=== PATIENT | female | born 1945 | race Caucasian/White ===

== ENCOUNTER 2018-01-11 12:30 | Outpatient (RCR) | payer MEDICARE, MEDICAID ==
[2018-01-04] MEDS: FERRIC CARBOXYMALTOSE INJ 750 MG in NS (IVPB) 250 ML IV SCH (13:44)
[2018-01-04 15:20] VITALS: BP 120/61
[~2018-01-11 12:30] MED LIST: ACET-93 PO; ACETAMINOPHEN 500 MG TAB (TYLENOL) PO PRN; C250T PO; CRV25T PO; FEBU40TA PO; FERR325T18 PO; FERRIC CARBOXYMALTOSE 750 MG/15 ML IV SCH; FURO-125 PO; LORA10TA7 PO; METO2.5T PO; PANT40TA2 PO; POTA10TA10 PO; SERT50TA2 PO; WARF2TAB PO; WARF3TAB PO; diphenhydrAMINE 50 MG/ML INJ (BENADRYL) IV PRN
[2018-01-11] MEDS: FERRIC CARBOXYMALTOSE INJ 750 MG in NS (IVPB) 250 ML IV SCH (12:50)
[2018-01-11 13:30] VITALS: BP 117/64
== END 2018-04-04 | disposition home or self-care (01) ==
LOC: SDC 12:30
PROVIDERS: ATTEND Internal Medicine Nephrology
DX: D50.9 Iron deficiency anemia, unspecified (principal); D63.1 Anemia in chronic kidney disease; N18.3 Chronic kidney disease, stage 3 (moderate)
CPT/HCPCS: 96365

== ENCOUNTER → 2018-10-19 | Outpatient (CLI) | payer MEDICARE, MEDICAID ==
[~2018-10-19] MED LIST changes: -ACETAMINOPHEN 500 MG TAB (TYLENOL) PO PRN; -FERRIC CARBOXYMALTOSE 750 MG/15 ML IV SCH; -diphenhydrAMINE 50 MG/ML INJ (BENADRYL) IV PRN
--- NOTE | 2018-10-19 12:55 | Diagnostic Imaging Report ---
PROCEDURE: US Thyroid. TECHNIQUE: Multiple real-time grayscale images were obtained of the thyroid in various projections. INDICATION: Primary hyperparathyroidism. FINDINGS: The right lobe of the thyroid measures 4.3 x 1.8 x 2.1 cm and the left lobe measures 3.5 x 1.6 x 1.7 cm. Isthmus is 3 mm in thickness. Bilateral thyroid nodules are identified. Nodules on the left are 2 to 4 mm in size. Largest nodule on the right measures approximately 1.4 x 1.9 x 1.1 cm. No microcalcifications are identified. IMPRESSION: Bilateral thyroid nodules, largest on the right. Fine-needle aspiration could be attempted, although this nodule is somewhat ill defined and difficult to separate from adjacent normal thyroid parenchyma. Consideration could be given to performance of followup with repeat study in approximately 6 months' to confirm stability. Dictated by: Dictated on workstation # [id number]
--- NOTE | 2018-10-19 19:06 | Diagnostic Imaging Report ---
INDICATION: Hyperparathyroidism. COMPARISON: Ultrasound thyroid, October 19, 2018. EXAMINATION: 20 minute and 2 hour delayed scintigraphic images at the level of the neck and chest were obtained. SPECT CT imaging was also obtained and provided. FINDINGS: There is a nodular area of radiotracer uptake overlying the right lobe of the thyroid which persists on delayed imaging. There is salivary gland and myocardial uptake which is a normal radiotracer distribution. The area of radiotracer uptake is projecting posterior to the expected location of the right lobe of the thyroid. Parathyroid adenoma versus an exophytic thyroid adenoma or primary differential diagnostic considerations. IMPRESSION: Nodular area of abnormal radiotracer uptake adjacent to the posterior aspect of the right lobe of the thyroid which may relate to a parathyroid adenoma. An exophytic thyroid adenoma would be a differential diagnostic consideration. Dictated by: Dictated on workstation # [id number]
== END ==
LOC: CARD 11:46
PROVIDERS: ATTEND Internal Medicine Endocrinology, Diabetes & Metabolism
DX: E21.0 Primary hyperparathyroidism (principal); E04.1 Nontoxic single thyroid nodule
CPT/HCPCS: 76536; 78072

== ENCOUNTER 2018-11-27 13:04 | Outpatient (RCR) | payer MEDICARE, MEDICAID ==
[2018-09-04 12:47] LABS: HEMOGLOBIN 9.9 G/DL (11.5-16.0)
[2018-09-04] MEDS: DARBEPOETIN 40 MCG/ML (ARANESP) HOSPITAL SC SCH (13:09)
[2018-09-04 13:30] VITALS: BP 136/66
[2018-09-18] MEDS: DARBEPOETIN 40 MCG/ML (ARANESP) HOSPITAL SC SCH (13:26)
[2018-09-18 13:30] VITALS: BP 142/70
[2018-09-18 13:53] LABS: ALBUMIN 3.9 GM/DL (3.2-4.5); CALCIUM 9.4 MG/DL (8.5-10.1); CREATININE SERUM 1.75 MG/DL (0.60-1.30); PHOSPHORUS 2.9 MG/DL (2.3-4.7); POTASSIUM 3.9 MMOL/L (3.6-5.0)
[2018-10-02 12:55] VITALS: BP 147/88
[2018-10-02 13:51] LABS: HEMOGLOBIN 10.4 G/DL (11.5-16.0)
[2018-10-30 13:34] LABS: HEMOGLOBIN 10.2 G/DL (11.5-16.0)
[2018-10-30] MEDS: DARBEPOETIN 60 MCG/ML (ARANESP) HOSPITAL SQ SCH (13:50)
[2018-10-30 13:55] VITALS: BP 127/60
[2018-11-13] MEDS: DARBEPOETIN 60 MCG/ML (ARANESP) HOSPITAL SQ SCH (12:53)
[2018-11-13 12:55] VITALS: BP 148/86
[~2018-11-27] VITALS: Ht 160 cm; Wt 124.7 kg
[~2018-11-27 13:04] MED LIST changes: +DARBEPOETIN 60 MCG/ML (ARANESP) HOSPITAL SQ SCH
[2018-11-27 13:28] LABS: HEMOGLOBIN 11.3 G/DL (11.5-16.0)
[2018-11-27 13:45] LABS: ALBUMIN 4.2 GM/DL (3.2-4.5); CALCIUM 9.5 MG/DL (8.5-10.1); CREATININE SERUM 1.55 MG/DL (0.60-1.30); PHOSPHORUS 3.7 MG/DL (2.3-4.7); POTASSIUM 3.9 MMOL/L (3.6-5.0)
[2018-11-27 13:50] VITALS: BP 134/78
[2018-11-27] MEDS: DARBEPOETIN 60 MCG/ML (ARANESP) HOSPITAL SQ SCH (13:50)
== END 2018-12-03 | disposition home or self-care (01) ==
LOC: SDC 13:04
PROVIDERS: ATTEND Internal Medicine Nephrology
DX: N18.4 Chronic kidney disease, stage 4 (severe) (principal); D63.1 Anemia in chronic kidney disease
CPT/HCPCS: 36415; 80069; 82728; 83540; 85014; 85018; 96372

== ENCOUNTER → 2019-10-01 | Outpatient (CLI) | payer MEDICARE, MEDICAID ==
[~2019-10-01] MED LIST changes: -DARBEPOETIN 60 MCG/ML (ARANESP) HOSPITAL SQ SCH
--- NOTE | 2019-10-01 13:06 | Diagnostic Imaging Report ---
INDICATION: Thyroid nodule. TECHNIQUE: Grayscale sonographic images of the thyroid gland. CORRELATION STUDY: 10/19/2018. FINDINGS: RIGHT LOBE: 4.5 x 1.7 x 1.9 cm. There is normal echotexture about the right lobe. LEFT LOBE: 3.8 x 1.4 x 1.4 cm. There are two predominantly cystic nodules with minimal peripheral soft tissue nodularity present. Perhaps underlying colloid cyst. Fairly similar in size, 6 x 6 x 3 mm and addition one 7 x 5 x 4 mm. The previously noted somewhat ill-defined area of nodularity and vascularity inferior to the right lobe is not appreciated on this current study. IMPRESSION: Two small, predominantly cystic, nodules in the left lobe. Perhaps minimally increased in size. Additional follow-up ultrasound imaging in approximately 12 months is recommended for reassessment of likely benign process. (Normal gland size: 4-5 x 2 x 2 cm) Dictated by: Dictated on workstation # [id number]
== END ==
LOC: RAD 10:49
PROVIDERS: ATTEND Internal Medicine Endocrinology, Diabetes & Metabolism
DX: E04.2 Nontoxic multinodular goiter (principal)
CPT/HCPCS: 76536

== ENCOUNTER 2021-05-12 10:48 | Emergency (ER) | payer MEDICARE, MEDICAID ==
[~2021-05-12] VITALS: Ht 160 cm; Wt 98.6 kg
[~2021-05-12 10:48] MED LIST changes: +ASCO250T16 PO; -C250T PO
--- NOTE | 2021-05-12 11:39 | ED Abdominal Pain ---
General Chief Complaint: Abdominal/GI Problems Stated Complaint: UMBILICAL HERNIA PAIN Nursing Triage Note: AMB TO ED WITH WALKER REPORTS SINCE SUN HAS HAD HERNIA. THAT HAS BEEN HURTING SINCE TUESDAY. C/O NAUSEA. Source of Information: Patient Exam Limitations: No Limitations (DEBBI ARMOS MED STUDENT) History of Present Illness Date Seen by Provider: May 12, 2021 Time Seen by Provider: 11:20 Initial Comments This is Felecia a 75 yo female that presented to the ED with her daughter via private vehicle with the chief complaint of abdominal pain. Pt states that she was diagnosed with an umbilical hernia 5-6 years ago but has only experienced these symptoms since last Tuesday. She described the lower abdominal pain as waxing and waning that becomes very sharp periodically. The pain continues to get worse and she put it at a 6/10 on the pain scale today. She is experiencing dry heaves and diarrhea. Pt has tried Tylenol but states that she has only been able to take 1 or 2 with her history of atrial fibrillation. Other PMH is significant for stage 3 kidney failure and controlled hypertension. Pt states that she is on a blood thinner but has been unable to take medications since yesterday due to dry heaving. PSH is significant for knee, back, and cataract surgery. Pt states that she hallucinates on morphine. Timing/Duration: 2-3 Days, 3-4 Days Severity/Quality: Moderate, Aching, Sharp Radiation: RLQ, LLQ Activities at Onset: None Modifying Factors: Worsens With Eating, Worsens With Movement Associated Symptoms: Nausea/Vomiting, Other (diarrhea) (DEBBI RAMOS STUDENT) Allergies and Home Medications Allergies Coded Allergies: No Known Drug Allergies (Unverified , 01/04/18) Patient Home Medication List Home Medication List Reviewed: Yes (AMARILIS LYMAN MD) Acetaminophen (Acetaminophen) 500 Mg Tablet, 2 TAB PO Q4H, (Reported) Entered as Reported by: RUFUS WINTERS on 01/04/181905 Ascorbic Acid (Vitamin C) 250 Mg Tab, 250 MG PO BID, (Reported) Entered as Reported by: RUFUS WINTERS on 01/04/181905 Carvedilol (Coreg) 25 Mg Tab, 50 MG PO BID, (Reported) Entered as Reported by: RUFUS WINTERS on 01/04/181905 Cephalexin (Cephalexin) 500 Mg Tablet, 500 MG PO BID Prescribed by: AMARILIS POLANCO on 05/12/211553 Febuxostat (Uloric) 40 Mg Tablet, 40 MG PO DAILY, (Reported) Entered as Reported by: RUFUS WINTERS on 01/04/181905 Ferrous Sulfate (Ferrous Sulfate) 325 Mg Tablet, 325 MG PO BID, (Reported) Entered as Reported by: RUFUS WINTERS on 01/04/181905 Furosemide (Lasix) 20 Mg Tablet, 20 MG PO DAILY, (Reported) Entered as Reported by: RUFUS WINTERS on 01/04/181905 Hydrocodone/Acetaminophen (Hydrocodone-Acetamin 5-325 mg) 1 Each Tablet, 0.5-1 TAB PO Q4H PRN for PAIN-MODERATE (5-7) Prescribed by: AMARILIS POLANCO on 05/12/211554 Loratadine (Loratadine) 10 Mg Tablet, 10 MG PO DAILY, (Reported) Entered as Reported by: RUFUS WINTERS on 01/04/181905 Metolazone (Metolazone) 2.5 Mg Tablet, 2.5 MG PO DAILY, (Reported) Entered as Reported by: RUFUS WINTERS on 01/04/181905 Ondansetron (Ondansetron Odt) 4 Mg Tab.rapdis, 4 MG SL Q4H PRN for NAUSEA/VOMITING Prescribed by: AMARILIS POLANCO on 05/12/211553 Pantoprazole Sodium (Protonix) 40 Mg Tablet.dr, 40 MG PO DAILY, (Reported) Entered as Reported by: RUFUS WINTERS on 01/04/181905 Potassium Chloride (Potassium Chloride) 10 Meq Tablet.er, 10 MEQ PO DAILY, (Reported) Entered as Reported by: RUFUS WINTERS on 01/04/181905 Sertraline HCl (Zoloft) 50 Mg Tablet, 50 MG PO DAILY, (Reported) Entered as Reported by: RUFUS WINTERS on 01/04/181905 Warfarin Sodium (Coumadin) 2 Mg Tablet, 2 MG PO WEEK, (Reported) Entered as Reported by: RUFUS WINTERS on 01/04/181905 Warfarin Sodium (Coumadin) 3 Mg Tablet, 3 MG PO UD, (Reported) Entered as Reported by: RUFUS WINTERS on 01/04/181905 Review of Systems Review of Systems Constitutional: no symptoms reported EENTM: No Symptoms Reported Respiratory: No Symptoms Reported Cardiovascular: Irregular Heart Rate Gastrointestinal: Abdominal Pain, Diarrhea, Poor Appetite, Poor Fluid Intake, Vomiting Genitourinary: No Symptoms Reported Musculoskeletal: no symptoms reported Skin: no symptoms reported Psychiatric/Neurological: No Symptoms Reported Endocrine: No Symptoms Reported Hematologic/Lymphatic: No Symptoms Reported (DEBBI RAMOS) Past Xvzyqbk-Zslgby-Rtkqgd Hx Patient Social History Tobacco Use?: No Substance use?: No Pt feels they are or have been: No (DEBBI RAMOS) Immunizations Up To Date First/Initial COVID19 Vaccinat: 04/06 Second COVID19 Vaccination Carter: 04/22 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 0.0oz. 124.754273yn; 38.00 BMI Method: General Appearance: WD/WN, moderate distress, obese HEENT: PERRL/EOMI Neck: non-tender, supple, normal inspection Respiratory: chest non-tender, lungs clear, normal breath sounds, no respiratory distress, no accessory muscle use Cardiovascular: normal peripheral pulses, irregularly irregular Gastrointestinal: abnormal bowel sounds, distended, rebound, tenderness, hernia Rectal: deferred Extremities: normal range of motion, non-tender, normal inspection Neurologic/Psychiatric: no motor/sensory deficits, alert, normal mood/affect, oriented x 3 Skin: normal color, warm/dry (DEBBI RAMOS STUDENT) Focused Exam Respiratory: Chest Non Tender, Lungs Clear, Normal Breath Sounds, No Accessory Muscle Use, No Respiratory Distress Cardiovascular: Irregularly Irregular Skin: normal color, warm/dry (DEBBI RAMOS) Progress/Results/Core Measures Results/Orders Lab Results Laboratory Tests Test 05/12/21 10:50 10/19/21 12:06 05/12/21 14:56 Range/Units Lab Scanned Report Referred Lab Report [id number] White Blood Count 8.1 4.3-11.0 10^3/uL Red Blood Count 4.64 3.80-5.11 10^6/uL Hemoglobin 14.8 11.5-16.0 g/dL Hematocrit 45 35-52 % Mean Corpuscular Volume 96 80-99 fL Mean Corpuscular Hemoglobin 32 25-34 pg Mean Corpuscular Hemoglobin Concent 33 32-36 g/dL Red Cell Distribution Width 12.2 10.0-14.5 % Platelet Count 114 L 130-400 10^3/uL Mean Platelet Volume 11.4 9.0-12.2 fL Immature Granulocyte % (Auto) 0 % Neutrophils (%) (Auto) 86 H 42-75 % Lymphocytes (%) (Auto) 8 L 12-44 % Monocytes (%) (Auto) 6 0-12 % Eosinophils (%) (Auto) 0 0-10 % Basophils (%) (Auto) 0 0-10 % Neutrophils # (Auto) 7.0 1.8-7.8 10^3/uL Lymphocytes # (Auto) 0.6 L 1.0-4.0 10^3/uL Monocytes # (Auto) 0.5 0.0-1.0 10^3/uL Eosinophils # (Auto) 0.0 0.0-0.3 10^3/uL Basophils # (Auto) 0.0 0.0-0.1 10^3/uL Immature Granulocyte # (Auto) 0.0 0.0-0.1 10^3/uL Neutrophils % (Manual) 82 % Lymphocytes % (Manual) 14 % Monocytes % (Manual) 2 % Eosinophils % (Manual) 1 % Basophils % (Manual) 0 % Band Neutrophils 1 % Blood Morphology Comment NORMAL Prothrombin Time 15.7 H 12.2-14.7 SEC INR Comment 1.2 0.8-1.4 Sodium Level 141 135-145 MMOL/L Potassium Level 3.3 L 3.6-5.0 MMOL/L Chloride Level 102 98-107 MMOL/L Carbon Dioxide Level 26 21-32 MMOL/L Anion Gap 13 5-14 MMOL/L Blood Urea Nitrogen 23 H 7-18 MG/DL Creatinine 1.70 H 0.60-1.30 MG/DL Estimat Glomerular Filtration Rate 29 BUN/Creatinine Ratio 14 Glucose Level 127 H 70-105 MG/DL Calcium Level 10.2 H 8.5-10.1 MG/DL Corrected Calcium 10.0 8.5-10.1 MG/DL Total Bilirubin 1.4 H 0.1-1.0 MG/DL Aspartate Amino Transf (AST/SGOT) 35 H 5-34 U/L Alanine Aminotransferase (ALT/SGPT) 36 0-55 U/L Alkaline Phosphatase 173 H 40-136 U/L C-Reactive Protein High Sensitivity 0.20 0.00-0.50 MG/DL Total Protein 7.5 6.4-8.2 GM/DL Albumin 4.2 3.2-4.5 GM/DL Lipase 31 8-78 U/L Urine Color YELLOW Urine Clarity SL CLOUDY Urine pH 6.0 5-9 Urine Specific [place] 1.015 L 1.016-1.022 Urine Protein NEGATIVE NEGATIVE Urine Glucose (UA) NEGATIVE NEGATIVE Urine Ketones NEGATIVE NEGATIVE Urine Nitrite NEGATIVE NEGATIVE Urine Bilirubin NEGATIVE NEGATIVE Urine Urobilinogen 0.2 < = 1.0 MG/DL Urine Leukocyte Esterase 1+ H NEGATIVE Urine RBC (Auto) TRACE-I H NEGATIVE Urine RBC 0-2 /HPF Urine WBC 5-10 H /HPF Urine Crystals PRESENT H /LPF Urine Amorphous Sediment FEW HERMELINDO URATES H /LPF Urine Bacteria MODERATE H /HPF Urine Casts NONE /LPF Urine Mucus NEGATIVE /LPF Urine Culture Indicated YES (AMARILIS LYMAN MD) Micro Results Microbiology 05/12/21 Urine Culture - Final, Complete NO GROWTH (AMARILIS LYMAN MD) My Orders Orders - AMARILIS LYMAN MD Cbc With Automated Diff (05/12/21 11:34) Comprehensive Metabolic Panel (05/12/21 11:34) Hs C Reactive Protein (05/12/21 11:34) Lipase (05/12/21 11:34) Ua Culture If Indicated (05/12/21 11:34) Ed Iv/Invasive Line Start (05/12/21 11:34) Manual Differential (05/12/21 12:06) Protime With Inr (05/12/21 12:33) Ed Iv/Invasive Line Start (05/12/21 13:00) Lactated Ringers (Lr 1000 Ml Iv Solution (05/12/21 13:00) Ct Abdomen/Pelvis Wo (05/12/21 13:12) Urine Culture (05/12/21 14:56) (AMARILIS LYMAN MD) Medications Given in ED (AMARILIS LYMAN MD) Vital Signs/I&O 05/12/21 05/12/21 05/12/21 11:05 11:34 16:09 Temp 36.3 Pulse 88 85 78 Resp 18 18 18 B/P (MAP) 190/101 (130) 159/84 133/70 Pulse Ox 96 97 96 O2 Delivery Room Air Room Air Room Air (AMARILIS LYMAN MD) Blood Pressure Mean: 130 Progress Progress Note : Progress Note There are mild dyscrasias on the lab work-up. The kidney dysfunction is chronic and at baseline. I discussed further work-up with imaging due to increasing pain with presence of hernia. Patient elected to proceed with CT. CT demonstrated a fat-containing abdominal wall hernia but no significant bowel involvement. Urinary tract infection was identified. Hernia may in fact be the cause of her pain. Urinary tract infection is being treated and patient was advised to seek referral to a general surgeon to discuss her hernia. See discharge instructions. (AMARILIS LYMAN MD) Departure Impression Primary Impression: Abdominal wall hernia Additional Impressions: Lower abdominal pain Urinary tract infection Qualified Codes: N39.0 - Urinary tract infection, site not specified Disposition: 01 HOME, SELF-CARE Condition: Stable Departure-Patient Inst. Decision time for Depature: 15:47 (AMARILIS LYMAN MD) Referrals: [facility] (PCP) Primary Care Physician MELISA GREY DO (Family) Primary Care Physician PAUL ROSENTHAL BRETT D DO KIDO, TAKAAKI MD Patient Instructions: Abdominal Wall Hernias, Urinary Tract Infections in Adults Add. Discharge Instructions: Drink plenty of clear liquids to stay well hydrated. Complete your antibiotic as prescribed. Urine culture results should be available in about 48 hours. Please follow-up with your primary care provider by phone to review culture results. Seek referral to a surgeon for an opinion regarding your abdominal wall hernia. Use your pain medication as prescribed. Call with questions or concerns. Return to the ER if you have worsening symptoms. Please note hydrocodone may cause constipation. If you are no longer having diarrhea, you may wish to take a stool softener such as Colace daily while you are using hydrocodone. All discharge instructions reviewed with patient and/or family. Voiced understanding. Scripts Hydrocodone/Acetaminophen (Hydrocodone-Acetamin 5-325 mg) 1 Each Tablet 0.5-1 TAB PO Q4H PRN for PAIN-MODERATE (5-7), #10 TAB Prov: AMARILIS LYMAN MD 05/12/21 Ondansetron (Ondansetron Odt) 4 Mg Tab.rapdis 4 MG SL Q4H PRN for NAUSEA/VOMITING, #10 TAB Prov: AMARILIS LYMAN MD 05/12/21 Cephalexin (Cephalexin) 500 Mg Tablet 500 MG PO BID, #14 TAB Prov: AMARILIS LYMAN MD 05/12/21 Copy Copies To 1: MELISA GREY DYLAN MED STUDENT May 12, 2021 11:39 AMARILIS LYMAN MD May 12, 2021 15:52
[2021-05-12 12:15] LABS: BASOPHILS % (AUTO) 0 % (0-10); EOSINOPHILS % (AUTO) 0 % (0-10); HEMATOCRIT 45 % (35-52); HEMOGLOBIN 14.8 g/dL (11.5-16.0); LYMPHOCYTES # (AUTO) 0.6 10^3/uL (1.0-4.0); LYMPHOCYTES % (AUTO) 8 % (12-44); MEAN CORPUSCULAR HEMOGLOBIN 32 pg (25-34); MEAN CORPUSCULAR HGB CONC 33 g/dL (32-36); MEAN CORPUSCULAR VOLUME 96 fL (80-99); MEAN PLATELET VOLUME 11.4 fL (9.0-12.2); MONOCYTES # (AUTO) 0.5 10^3/uL (0.0-1.0); MONOCYTES % (AUTO) 6 % (0-12); NEUTROPHILS % (AUTO) 86 % (42-75); PLATELET COUNT 114 10^3/uL (130-400); WHITE BLOOD COUNT 8.1 10^3/uL (4.3-11.0)
[2021-05-12 12:34] LABS: ALBUMIN 4.2 GM/DL (3.2-4.5); POTASSIUM 3.3 MMOL/L (3.6-5.0)
[2021-05-12 12:35] LABS: CALCIUM 10.2 MG/DL (8.5-10.1)
[2021-05-12 12:37] LABS: TOTAL PROTEIN 7.5 GM/DL (6.4-8.2)
[2021-05-12 12:38] LABS: BILIRUBIN,TOTAL 1.4 MG/DL (0.1-1.0)
[2021-05-12 12:40] LABS: CREATININE SERUM 1.7 MG/DL (0.60-1.30)
[2021-05-12 12:41] LABS: BAND NEUTROPHILS 1 %; BASOPHILS % (MANUAL) 0 %; EOSINOPHILS % (MANUAL) 1 %; LYMPHOCYTES % (MANUAL) 14 %; MONOCYTES % (MANUAL) 2 %; NEUTROPHILS % (MANUAL) 82 %; RBC MORPH NORMAL
[2021-05-12 12:51] LABS: INR 1.2 (0.8-1.4); PROTHROMBIN TIME PATIENT 15.7 SEC (12.2-14.7)
[2021-05-12] MEDS ORDERED: LACTATED RINGERS 1,000 ML IV ONE (13:00)
--- NOTE | 2021-05-12 14:19 | Diagnostic Imaging Report ---
PROCEDURE: CT abdomen and pelvis without contrast. TECHNIQUE: Multiple contiguous axial images were obtained through the abdomen and pelvis without the use of intravenous contrast. Auto Exposure Controls were utilized during the CT exam to meet ALARA standards for radiation dose reduction. INDICATION: Abdominal umbilical hernia, abdominal pain. COMPARISON: None. FINDINGS: There is mild cardiac enlargement. Lungs are clear. Coronary artery disease is present. The visualized gallbladder, liver, spleen, and pancreas are grossly unremarkable. There is a benign exophytic cyst measuring 5.5 cm of the right kidney. Renal atrophy is seen bilaterally. There is no hydronephrosis. Mild atherosclerosis is seen throughout the abdominal aorta without evidence of aneurysm. There is some nonspecific distention with air-fluid levels in the proximal colon. No obvious obstruction or mass is seen. The descending and sigmoid colon are decompressed. Consider colonoscopy for further evaluation. The visualized small bowel is unremarkable. There is a large fat-containing umbilical hernia which does not appear inflamed. The hernia does not contain bowel however, given the distention of the proximal colon, this is likely the transition point due to some partial stricturing. The uterus is chronically calcified and atrophied. There is enlargement of the left ovary for the patient's age measuring up to 3.8 cm. The urinary bladder is unremarkable. Osseous structures demonstrate severe degenerative changes with scoliosis of the thoracolumbar spine. IMPRESSION: 1. Fat-containing umbilical hernia, likely omentum which may be causing some slight narrowing of portion of the transverse colon with some proximal distention. The descending and sigmoid colon are decompressed. There is no overt inflammation. 2. Right renal cyst with chronic renal atrophy. 3. Enlarged left ovary. This may be further classified with a nonemergent ultrasound. Dictated by: Dictated on workstation # [id number]
[2021-05-12 15:08] LABS: BILIRUBIN,URINE NEGATIVE (NEGATIVE); CLARITY,URINE SL CLOUDY; COLOR,URINE YELLOW; GLUCOSE, URINE (UA) NEGATIVE (NEGATIVE); KETONES,URINE NEGATIVE (NEGATIVE); LEUKOCYTE ESTERASE ,URINE 1+ (NEGATIVE); NITRITE,URINE NEGATIVE (NEGATIVE); PROTEIN,URINE NEGATIVE (NEGATIVE)
[2021-05-12 15:23] LABS: BACTERIA,URINE MODERATE /HPF
[2021-05-12 15:24] LABS: AMORPHOUS SEDIMENT,UR FEW AMOR URATES /LPF; RBC,URINE 0-2 /HPF
[2021-05-12] MEDS ORDERED: CEPH500T PO (15:54)
[2021-05-12] MEDS ORDERED: ONDA4TAB11 SL (15:54)
[2021-05-12] MEDS ORDERED: ACHD5005 PO (15:54)
[2021-05-12 16:09] VITALS: BP 133/70
== END 2021-05-12 16:09 | disposition home or self-care (01) ==
LOC: EDUNIT# 10:48 → ER 10:50
DX: K43.9 Ventral hernia without obstruction or gangrene (principal); N39.0 Urinary tract infection, site not specified; E66.9 Obesity, unspecified; I48.91 Unspecified atrial fibrillation; Z68.38 Body mass index [BMI] 38.0-38.9, adult; Z79.01 Long term (current) use of anticoagulants
CPT/HCPCS: 36415; 74176; 80053; 81000; 83690; 85007; 85027; 85610; 86141; 87088

== ENCOUNTER 2021-05-28 05:34 | Outpatient (CLI) | payer MEDICARE, MEDICAID ==
[~2021-05-28] VITALS: Ht 162.6 cm; Wt 101.4 kg
[~2021-05-28 05:34] MED LIST changes: +ACHD5005 PO; +CEPH500T PO; +ONDA4TAB11 SL
[2021-05-28] MEDS ORDERED: APIX2.5T PO (12:17)
[2021-05-28] MEDS ORDERED: CHOL400C9 PO (12:17)
[2021-05-28] MEDS ORDERED: COLC0.6C3 PO (12:17)
== END 2021-05-28 12:52 | disposition home or self-care (01) ==
LOC: PREOP 05:34
PROVIDERS: ATTEND Surgery
DX: Z01.818 Encounter for other preprocedural examination (principal)

== ENCOUNTER 2021-06-04 08:19 | Day surgery (SDC) | payer MEDICARE, MEDICAID ==
[~2021-06-04] VITALS: Ht 162.6 cm; Wt 101.4 kg
[2021-06-04] VITALS (11 sets, daily range): BP systolic 99–137; BP diastolic 55–88
[~2021-06-04 08:19] MED LIST changes: +APIX2.5T PO; +CHOL400C9 PO; +COLC0.6C3 PO
[2021-06-04] MEDS ORDERED: ceFAZolin 2 GM IV Premixed 50 ML IV ONE (08:30)
[2021-06-04] MEDS ORDERED: LACTATED RINGERS 1,000 ML IV PRN (08:30)
[2021-06-04] MEDS ORDERED: LIDOCAINE/EPI 1%-1:100,000 (XYLOCAINE) 20ML ONE (08:38)
[2021-06-04] MEDS ORDERED: fentaNYL INJ 100 MCG/2 ML AMP ONE (08:47)
[2021-06-04] MEDS ORDERED: LIDOCAINE PF 2% 5 ML (XYLOCAINE) VIAL ONE (08:47)
[2021-06-04] MEDS ORDERED: ROCURONIUM 10 MG/ML 5 ML SYRINGE IV ONE (08:47)
[2021-06-04] MEDS ORDERED: SEVOFLURANE (ULTANE) 15 ML INHAL SOLN ONE ×2 (08:47→11:18)
[2021-06-04] MEDS ORDERED: ONDANSETRON 4 MG/2 ML (SDV) Z0FRAN ONE (08:47)
[2021-06-04] MEDS ORDERED: proPOfol 200 MG/20 ML (DIPRIVAN) VIAL IV ONE (08:47)
--- NOTE | 2021-06-04 08:57 | Progress Note-Pre Operative ---
Pre-Operative Progress Note H&P Reviewed The H&P was reviewed, patient examined and no changes noted. Date Seen by Provider: Jun 04, 2021 Time Seen by Provider: 08:50 Date H&P Reviewed: Jun 04, 2021 Time H&P Reviewed: 08:45 Pre-Operative Diagnosis: Symptomatic umbilical hernia VANIA JAQUEZ APRN Jun 04, 2021 08:57
[2021-06-04] MEDS ORDERED: HYDR-3817 PO (08:59)
[2021-06-04] MEDS ORDERED: ONDANSETRON 4 MG/2 ML (SDV) Z0FRAN IVP PRN ×2 (09:00→11:45)
[2021-06-04] MEDS ORDERED: HYDROcodone/APAP 5 MG/325 MG (LORTAB) TAB PO ONE (09:00)
[2021-06-04] MEDS ORDERED: ACETAMINOPHEN 325 MG TABLET PO PRN (09:00)
[2021-06-04] MEDS ORDERED: fentaNYL INJ 100 MCG/2 ML AMP IVP PRN (09:00)
--- NOTE | 2021-06-04 09:00 | Discharge Inst-Surgical ---
D/C Lap Instructions-KIDO Reconcile Patient Problems Problems Reviewed?: Yes New, Converted, or Re-Newed RX: RX on Chart Follow Up Appt in 2 weeks Activity as tolerated No driving for 24 hours No driving while on pain medications Incentive Spirometry use every 2 hours while awake Regular Diet Symptoms to Report: Fever over 101 degree F, Nausea/Vomiting Infection Signs and Symptoms to report: Increased redness, Foul odor of wound, Increased drainage Bathing instructions: May shower Operative Area Clean/Dry; Keep incision clean/dry If any problems/questions: Contact your physician or go to Emergency Room VANIA JAQUEZ APRN Jun 04, 2021 09:00
[2021-06-04] MEDS ORDERED: GLYCOPYRROLATE 0.2 MG/ML (ROBINUL) 2 ML VIAL ONE ×2 (10:59→11:27)
[2021-06-04] MEDS ORDERED: ATROPINE INJ 0.4 MG/ML SDV ONE (11:00)
--- NOTE | 2021-06-04 11:22 | Progress Note-Post Operative ---
Post-Operative Progess Note Surgeon (s)/Escapement Maker (s) Surgeon LEO BENTON MD Escapement Maker: holly leavitt POSTMASTER RELIEF Pre-Operative Diagnosis Symptomatic umbilical hernia Post-Operative Diagnosis incacerated umbilical hernia Procedure & Operative Findings Date of Procedure 06/04/21 Procedure Performed/Findings open incarcerated umbilical hernia repair with mesh. Anesthesia Type get Estimated Blood Loss Estimated blood loss (mL): minimal Specimens/Packing Specimens Removed hernia sac LEO BENTON MD Jun 04, 2021 11:22
[2021-06-04] MEDS ORDERED: MEPERIDINE (DEMEROL) INJ 50 MG/ML IVP ONE (11:45)
[2021-06-04] MEDS ORDERED: fentaNYL INJ 100 MCG/2 ML AMP IVP ONE (11:45)
[2021-06-04] MEDS ORDERED: PROMETHAZINE INJ 25 MG/ML (PHENERGAN) AMP IVP ONE (11:45)
--- NOTE | 2021-06-04 11:47 | Anesthesia-General Post-Op ---
General Patient Condition Mental Status/LOC: Same as Preop Cardiovascular: Satisfactory Nausea/Vomiting: Absent Respiratory: Satisfactory Pain: Controlled Complications: Absent Post Op Complications Complications None Follow Up Care/Instructions Patient Instructions None needed. Anesthesia/Patient Condition Patient Condition Patient is doing well, no complaints, stable vital signs, no apparent adverse anesthesia problems. No complications reported per nursing. DIAZ MCKEON CRNA Jun 04, 2021 11:47
--- NOTE | 2021-06-04 16:21 | OPERATIVE REPORT ---
DATE OF SERVICE: 06/04/2021 ATTENDING PRIMARY CARE PHYSICIAN: Dr. Henry Hayward. PREOPERATIVE DIAGNOSIS: Symptomatic incarcerated umbilical hernia. POSTOPERATIVE DIAGNOSIS: Symptomatic incarcerated umbilical hernia with the defect approximately 6 cm in size. PROCEDURE: Open incarcerated umbilical hernia repair with mesh. SURGEON: Leo Benton MD. DATABASE TESTER: Nico Mahoney APRN. ANESTHESIA: General endotracheal. ESTIMATED BLOOD LOSS: Minimal. FINDINGS: Only omentum within the hernia sac, which was incarcerated. DISPOSITION: The patient tolerated the procedure well. INDICATIONS: The patient is a 75-year-old female referred over to us for symptomatic umbilical hernia. She reports that this has been present for the past 6 years; however, has grown larger in size and become more painful. She states that the pain was significant and she was seen in the Emergency Department. She did not report any nausea, no vomiting and was having normal bowel function. A CT scan was performed, which did show a large umbilical hernia with omentum within the hernia sac. DESCRIPTION OF PROCEDURE: The patient was brought to the operating room, laid supine on the table. After adequate IV pain and sedative medications and general endotracheal intubation, the abdomen was prepped and draped in standard surgical fashion. A 0.5% Marcaine with epinephrine was used to anesthetize the overlying skin in the supraumbilical rim and a crescent shaped skin incision made using a 15 blade. The hernia sac was then completely dissected out using electrocautery as well as blunt dissection. We proceeded with this dissection until the fascial base was identified. The hernia sac was then opened with Metzenbaum scissors. There was incarcerated omentum; however, no strangulation identified. We then proceeded with dissection of the hernia sac under direct visualization using electrocautery. The incarcerated omentum was not able to be reduced back into the peritoneal cavity and was then excised using hemostats, cut with cautery and tied with 0 silk ties with visualization of good hemostasis. The fascial defect was measured out to be approximately 6 cm and a 15 cm round coated polypropylene mesh was then placed into the defect and sutured transfascially in a concentric manner using 0 Prolene interrupted sutures. Good hemostasis was observed. The umbilicus was imbricated with a mesh using 3-0 Vicryl suture. The subcutaneous tissue was then reapproximated using 3-0 Vicryl interrupted sutures. Skin was closed using 4-0 Monocryl running subcuticular sutures. Wound was then cleaned and covered with Dermabond. The umbilicus was then stuffed with tonsil sponges followed by 4 x 4 gauze followed by large Op-Site followed by an abdominal binder. The patient tolerated the procedure well. We will start IV normal pain medication as well as a clear liquid diet. Once she is tolerating clears, has good pain control with oral pain medications, ambulating well, we will discharge her home where she will be instructed to remove the pressure dressing in approximately five days and to wear the abdominal binder for the next two weeks and to do no heavy lifting or exertion for the next six weeks. Job ID: [id number] DocumentID: [id number] Dictated Date: 06/04/2021 11:34:36 Engineering Lecturer Date: 06/04/2021 16:21:06 Dictated By: LEO BENTON MD
== END 2021-06-04 14:15 | disposition home or self-care (01) ==
LOC: SDC 08:19
PROVIDERS: ATTEND Surgery
DX: K42.0 Umbilical hernia with obstruction, without gangrene (principal); I48.91 Unspecified atrial fibrillation; I12.9 Hypertensive chronic kidney disease with stage 1 through stage 4 chronic kidney disease, or unspecified chronic kidney disease; N18.30 Chronic kidney disease, stage 3 unspecified; K21.9 Gastro-esophageal reflux disease without esophagitis; F41.9 Anxiety disorder, unspecified; D50.9 Iron deficiency anemia, unspecified; F32.A Depression, unspecified; E66.01 Morbid (severe) obesity due to excess calories; Z79.899 Other long term (current) drug therapy; Z79.01 Long term (current) use of anticoagulants; Z11.2 Encounter for screening for other bacterial diseases; Z88.5 Allergy status to narcotic agent; Z91.048 Other nonmedicinal substance allergy status; Z68.41 Body mass index [BMI] 40.0-44.9, adult
CPT/HCPCS: 49587; 87081; 88302; C1781

== ENCOUNTER → 2021-11-17 | Outpatient (CLI) | payer MEDICARE, MEDICAID ==
[~2021-11-17] MED LIST changes: +HYDR-3817 PO
--- NOTE | 2021-11-17 09:50 | Diagnostic Imaging Report ---
INDICATION: Postmenopausal screening COMPARISON: Baseline FINDINGS: AP Spine L1-L4: [BMD (g/cm2): 1.112] [T-Score: -0.7] [Z-Score: 0.0] [BMD Previous: na] [BMD % Change: na] LT Hip Neck: [BMD (g/cm2): 0.680] [T-Score: -2.6] [Z-Score: -1.2] LT Hip Total: [BMD (g/cm2):0.659] [T-Score:-2.8] [Z-Score: -1.6] [BMD Previous: na] [BMD % Change: na] RT Hip Neck: [BMD (g/cm2):0.653] [T-Score:-2.8] [Z-Score:-1.4] RT Hip Total: [BMD (g/cm2):0.662] [T-score:-2.7] [Z-Score:-1.6] [BMD Previous:na] [BMD % Change:na] *Indicates significant change from prior examination based on 95% confidence level. World Health Organization criteria for BMD interpretation classify patients as Normal (T-score at or above -1.0), Osteopenic (T-score between -1.0 and -2.5) or Osteoporotic (T-score at or below -2.5). LIMITATIONS AND MODIFICATION: None. FRACTURE RISK (FRAX SCORE): The ten year probability of (%): Major Osteoporotic Fracture: [na] Hip Fracture: [na] IMPRESSION: 1. Osteoporosis. 2. Baseline examination. 3. See below National Osteoporosis Foundation guidelines on when to potentially initiate pharmacologic therapy. Based on the National Osteoporosis Foundation Guidelines, pharmacologic treatment should be initiated in any of the following, unless clinical conditions suggest otherwise: * Any patient with prior fragility fracture of the hip or vertebrae. A spine fracture indicates 5X risk for subsequent spine fracture and 2X risk for subsequent hip fracture. * Osteoporosis (T-score <-2.5). * Postmenopausal women and men age 50 and older with low bone mass/osteopenia (T-score between -1.0 and -2.5) by DXA and 10-year major osteoporotic fracture greater than 20% or a 10-year probability of hip fracture greater than 3%. These fracture risks are supplied above in the FRAX score, if applicable. * Clinician judgement and/or patient preferences may indicate treatment for people with 10-year fracture probabilities above or below these levels. Dictated by: Dictated on workstation # [id number]
--- NOTE | 2021-11-17 12:11 | Diagnostic Imaging Report ---
PROCEDURE: US Thyroid. TECHNIQUE: Multiple real-time grayscale images were obtained of the thyroid in various projections. INDICATION: Thyroid nodule. COMPARISON: 10/01/2019. FINDINGS: Right thyroid lobe: The right thyroid lobe measures 4.4 x 1.6 x 1.6 cm. A mixed solid and cystic nodule in the mid right thyroid is more conspicuous on today's examination. This nodule is wider than tall, hypoechoic and has no echogenic foci measuring 0.5 x 0.3 x 0.5 cm (TI-RADS 3). Isthmus: The thyroid isthmus measures 0.4 cm and is without nodule. Left thyroid lobe: The left thyroid lobe measures 4.0 x 1.4 x 1.5 cm. There is a cystic nodule in the left thyroid with comet tail artifact, circumscribed margins and is wider than tall measuring 0.7 x 0.5 x 0.6 cm (previously 0.5 x 0.5 x 0.7 cm), and this is compatible with a TI-RADS 1 nodule. A smaller simple cyst is present in the left thyroid lobe and stable, also TI-RADS 1. IMPRESSION: Bilateral thyroid nodules are stable and do not meet criteria for recommended follow-up imaging given small size. ACR TI-RADS: TR3 . TI-RADS Recommendations:TR3 - Mildly Suspicious. FNA if > 2.5 cm. Follow if > 1.5 cm at 1, 3, 5 years. Dictated by: Dictated on workstation # [id number]
== END ==
LOC: RAD 08:30
PROVIDERS: ATTEND Internal Medicine Endocrinology, Diabetes & Metabolism
DX: Z13.820 Encounter for screening for osteoporosis (principal); M81.0 Age-related osteoporosis without current pathological fracture; E04.2 Nontoxic multinodular goiter; E21.0 Primary hyperparathyroidism; E55.9 Vitamin D deficiency, unspecified; Z78.0 Asymptomatic menopausal state
CPT/HCPCS: 76536; 77080